=== PATIENT | male | born 1930 | race Caucasian/White ===

== ENCOUNTER 2017-02-07 10:04 | Emergency (ER) | payer MEDICARE, BC ==
[2017-02-07 10:51] VITALS: BP 137/81
--- NOTE | 2017-02-07 10:51 | EDM.PDOC ---
ED HPI GENERAL MEDICAL PROBLEM - General Chief Complaint: Neuro Symptoms/Deficits Stated Complaint: STROKE? Time Seen by Provider: 02/07/17 10:15 Source of Information: Reports: Patient, EMS History Limitations: Reports: No Limitations - History of Present Illness INITIAL COMMENTS - FREE TEXT/NARRATIVE: 78-year-old male with a history of 6 months of recurring TIA-like symptoms is having another episode. 2 weeks ago he had a persistent symptom of dysarthria which was evaluated thoroughly at [facility]. He has a known partial obstruction of the carotid artery which he is scheduled to be repaired, he has a consultation regarding this tomorrow. He has had dysarthria for 2 hours, but is improving rapidly. No other symptoms. Onset: Unknown/Unsure Severity: Mild Associated Symptoms: Reports: No Other Symptoms - Related Data Allergies Allergy/AdvReac Type Severity Reaction Status Date / Time aspirin Allergy Nausea Verified 02/07/17 10:19 Home Meds: Home Meds Aspirin 325 mg PO DAILY 02/07/17 [History] Famotidine [Pepcid] 20 mg PO BID 02/07/17 [History] atorvaSTATin [Lipitor] 40 mg PO BEDTIME 02/07/17 [History] Past Medical History - Past Health History Medical/Surgical History: Denies Medical/Surgical History HEENT History: Reports: Macular Degeneration Gastrointestinal History: Reports: GERD Musculoskeletal History: Reports: Fracture, Gout Neurological History: Reports: CVA Endocrine/Metabolic History: Reports: Other (See Below) Other Endocrine/Metabolic History: borderline diabetes Dermatologic History: Reports: Eczema - Infectious Disease History Infectious Disease History: Reports: Chicken Pox, Measles, MRSA Social & Family History - Tobacco Use Smoking Status *Q: Unknown Ever Smoked Second Hand Smoke Exposure: No - Caffeine Use Caffeine Use: Reports: Coffee - Alcohol Use Days Per Week of Alcohol Use: 1 Number of Drinks Per Day: 1 Total Drinks Per Week: 1 - Recreational Drug Use Recreational Drug Use: No ED ROS GENERAL - Review of Systems Review Of Systems: See Below Constitutional: Denies: Fever, Chills Respiratory: Reports: No Symptoms Cardiovascular: Reports: No Symptoms Musculoskeletal: Reports: No Symptoms Skin: Reports: No Symptoms Neurological: Denies: Headache ED EXAM, NEURO - Physical Exam Exam: See Below Exam Limited By: No Limitations General Appearance: Alert, No Apparent Distress Eye Exam: Bilateral Eye: EOMI Respiratory/Chest: No Respiratory Distress, Lungs Clear Cardiovascular: Regular Rate, Rhythm Neurological: Alert, Normal Mood/Affect, Other (Only neurologic deficit found was dysarthria, no facial muscle weakness or peripheral symptoms or findings.) Psychiatric: Normal Affect, Normal Mood Skin Exam: Warm, Dry EKG INTERPRETATION Rhythm: NSR QRS: RBBB Course - Vital Signs Last Recorded V/S: Last Vital Signs Temp 98.6 F 02/07/17 10:48 Pulse 60 02/07/17 10:11 Resp 15 02/07/17 10:48 BP 137/81 02/07/17 10:48 Pulse Ox 96 02/07/17 10:48 - Re-Assessments/Exams Free Text/Narrative Re-Assessment/Exam: 02/07/17 10:49 Patient was given his normal dose of a full aspirin and famotidine, patient took his own medicine. I discussed his condition with Dr. Morse, neurologist labor relations specialist who knows this patient well. Because his symptoms are rapidly improving and almost resolved, he recommended no further treatment or evaluation but to transfer to [place]. I discussed this with the patient and his daughter, I recommended ambulance transfer but he refused and insisted on going by private car understanding the risks. Departure - Departure Time of Disposition: 11:14 Disposition: DC/Tfer to Other 70 Condition: Fair Clinical Impression: Dysarthria Carotid artery disease Qualifiers: Laterality: left Qualified Code(s): I77.9 - Disorder of arteries and arterioles , unspecified TIA (transient ischemic attack) Qualifiers: Transient cerebral ischemia type: carotid artery syndrome (hemispheric) Qualified Code(s): G45.1 - Carotid artery syndrome (hemispheric) - Discharge Information Instructions: Carotid Artery Disease, Transient Ischemic Attack, [id number], Hypophosphatemia Referrals: PCP,None [Primary Care Provider] - Forms: ED Department Discharge Care Plan Goals: Patient will be transported to [facility] in [place] for admission, Dr. Morse accepted the patient.
== END 2017-02-07 11:17 | disposition other institution (70) ==
LOC: JP.ED 10:04
DX: G45.1 Carotid artery syndrome (hemispheric) (principal); I77.9 Disorder of arteries and arterioles, unspecified; K21.9 Gastro-esophageal reflux disease without esophagitis; Z79.82 Long term (current) use of aspirin; Z88.6 Allergy status to analgesic agent
CPT/HCPCS: 99285

== ENCOUNTER 2017-06-13 14:07 | Inpatient (IN) | payer MEDICARE, BC ==
--- NOTE | 2017-06-13 14:29 | EDM.PDOC ---
ED HPI GENERAL MEDICAL PROBLEM - General Chief Complaint: Lower Extremity Injury/Pain Stated Complaint: FELL AT HOME Time Seen by Provider: 06/13/17 14:20 Source of Information: Reports: Patient, Family History Limitations: Reports: No Limitations - History of Present Illness INITIAL COMMENTS - FREE TEXT/NARRATIVE: 87-year-old male stumbled at home falling onto his right hip area. He is having significant pain in the right groin and a small amount of lateral right hip pain. He is able to move the hip fairly freely but has significant pain with weightbearing. Onset: Sudden Duration: Hour(s): (Within the past 2 hours) Location: Reports: Pelvis, Lower Extremity, Right Quality: Reports: Sharp, Stabbing Severity: Moderate Worsens with: Reports: Other (Some increased pain with movement but marked increased pain with weightbearing) Right Hip Pain Score (Numeric/FACES): 8 - Related Data Allergies Allergy/AdvReac Type Severity Reaction Status Date / Time aspirin Allergy Nausea Verified 06/13/17 14:26 Home Meds: Home Meds Aspirin 325 mg PO DAILY 02/07/17 [History] Famotidine [Pepcid] 20 mg PO BID 02/07/17 [History] atorvaSTATin [Lipitor] 40 mg PO BEDTIME 02/07/17 [History] Lutein/Minerals/Vit A,C & E [Ocuvite] 1 tab PO DAILY 06/13/17 [History] Past Medical History - Past Health History Medical/Surgical History: Denies Medical/Surgical History HEENT History: Reports: Macular Degeneration Gastrointestinal History: Reports: GERD Musculoskeletal History: Reports: Fracture, Gout Neurological History: Reports: CVA Endocrine/Metabolic History: Reports: Other (See Below) Other Endocrine/Metabolic History: borderline diabetes Dermatologic History: Reports: Eczema - Infectious Disease History Infectious Disease History: Reports: Chicken Pox, Measles, MRSA Social & Family History - Tobacco Use Smoking Status *Q: Unknown Ever Smoked Second Hand Smoke Exposure: No - Caffeine Use Caffeine Use: Reports: Coffee - Alcohol Use Days Per Week of Alcohol Use: 1 Number of Drinks Per Day: 1 Total Drinks Per Week: 1 - Recreational Drug Use Recreational Drug Use: No Review of Systems - Review of Systems Review Of Systems: See Below Constitutional: Denies: Fever Respiratory: Denies: Shortness of Breath Cardiovascular: Denies: Chest Pain GI/Abdominal: Denies: Abdominal Pain Skin: Denies: Bruising Neurological: Reports: No Symptoms Psychiatric: Reports: No Symptoms ED EXAM, GENERAL - Physical Exam Exam: See Below Exam Limited By: No Limitations General Appearance: Alert, No Apparent Distress (Quite comfortable when lying supine and not moving) Head: Atraumatic Neck: Non-Tender Respiratory/Chest: No Respiratory Distress GI/Abdominal: Soft, Non-Tender Extremities: Other (Passive range of motion of the right leg and hip is generally unremarkable, he is able to lift the leg up against gravity. He has palpation tenderness in the right groin. There is no asymmetry, deformity of the right leg or rotation) Neurological: Alert, Oriented Skin Exam: Warm, Dry Course - Vital Signs Last Recorded V/S: Last Vital Signs Temp 100.0 F 06/13/17 16:40 Pulse 81 06/13/17 16:40 Resp 16 06/13/17 16:40 BP 157/75 H 06/13/17 16:40 Pulse Ox 92 L 06/13/17 16:40 - Orders/Labs/Meds Orders: Active Orders 24 hr Category Date Time Status Pelvis 1V or 2V [CR] Stat Exams 06/13/17 14:36 Taken Pelvis wo Cont [CT] Stat Exams 06/13/17 15:46 Taken Medication Orders Acetaminophen (Tylenol) 650 mg PO Q4H PRN PRN Reason: Pain (Mild 1-3)/fever Dextrose (Glutose 15) 15 gm PO ASDIRECTED PRN PRN Reason: Hypoglycemia Dextrose/Water (Dextrose 50% In Water) 50 ml IV ASDIRECTED PRN PRN Reason: Hypoglycemia Docusate Sodium (Colace) 100 mg PO BID [facility] Enoxaparin Sodium (Lovenox) 40 mg SUBCUT Q24H [facility] Famotidine (Pepcid) 20 mg PO BID [facility] Hydromorphone HCl (Dilaudid) 0.25 mg IVPUSH Q2H PRN PRN Reason: Pain Sodium Chloride (Normal Saline) 1,000 mls @ 100 mls/hr IV ASDIRECTED [facility] Insulin Aspart (Novolog) 0 unit SUBCUT QIDACANDBED [facility] PRN Reason: Protocol Magnesium Hydroxide (Milk Of Magnesia) 30 ml PO Q12H PRN PRN Reason: Constipation Multivitamins/Minerals (Prosight) 1 tab PO DAILY [facility] Ondansetron HCl (Zofran) 4 mg IV Q4H PRN PRN Reason: Nausea/Vomiting Oxycodone HCl (Oxycodone) 5 mg PO Q4H PRN PRN Reason: Pain (moderate 4-6) Last Admin: 06/13/17 16:55 Dose: 5 mg Polyethylene Glycol (Miralax) 17 gm PO DAILY PRN PRN Reason: Constipation Sodium Chloride (Saline Flush) 10 ml FLUSH ASDIRECTED PRN PRN Reason: Keep Vein Open Meds: Medications Generic Name Dose Route Start Last Admin Trade Name Freq PRN Reason Stop Dose Admin Acetaminophen 650 mg 06/13/17 16:35 Tylenol PO Q4H PRN Pain (Mild 1-3)/fever Dextrose 15 gm 06/13/17 16:35 Glutose 15 PO ASDIRECTED PRN Hypoglycemia Dextrose/Water 50 ml 06/13/17 16:35 Dextrose 50% In Water IV ASDIRECTED PRN Hypoglycemia Docusate Sodium 100 mg 06/13/17 17:00 Colace PO BID [facility] Enoxaparin Sodium 40 mg 06/13/17 17:30 Lovenox SUBCUT Q24H [facility] Famotidine 20 mg 06/13/17 21:00 Pepcid PO BID [facility] Hydromorphone HCl 0.25 mg 06/13/17 16:35 Dilaudid IVPUSH Q2H PRN Pain Sodium Chloride 1,000 mls @ 100 mls/hr 06/13/17 16:35 Normal Saline IV ASDIRECTED [facility] Insulin Aspart 0 unit 06/13/17 17:00 Novolog SUBCUT QIDACANDBED [facility] Protocol Magnesium Hydroxide 30 ml 06/13/17 16:35 Milk Of Magnesia PO Q12H PRN Constipation Multivitamins/Minerals 1 tab 06/14/17 09:00 Prosight PO DAILY [facility] Ondansetron HCl 4 mg 06/13/17 16:35 Zofran IV Q4H PRN Nausea/Vomiting Oxycodone HCl 5 mg 06/13/17 16:35 06/13/17 16:55 Oxycodone PO 5 mg Q4H PRN Administration Pain (moderate 4-6) Polyethylene Glycol 17 gm 06/13/17 16:35 Miralax PO DAILY PRN Constipation Sodium Chloride 10 ml 06/13/17 16:35 Saline Flush FLUSH ASDIRECTED PRN Keep Vein Open - Re-Assessments/Exams Free Text/Narrative Re-Assessment/Exam: 06/13/17 14:28 An AP pelvis x-ray was obtained. 06/13/17 15:09 AP x-ray revealed a right ramus fracture. Because of the significant pain with weightbearing, the fact the patient lives alone and the concern for him not being able to self-care I asked Dr. Almaraz to see the patient to consider admission for pain control and physical therapy evaluation. He may also need a orthopedic consultation or further assessment with a CT of the pelvis. Departure - Departure Time of Disposition: 16:20 Disposition: Admitted As Inpatient 64 Condition: Fair Clinical Impression: Fracture of pelvis - Discharge Information - My Orders Last 24 Hours: My Active Orders 06/13/17 14:36 Pelvis 1V or 2V [CR] Stat - Assessment/Plan Last 24 Hours: My Active Orders 06/13/17 14:36 Pelvis 1V or 2V [CR] Stat
--- NOTE | 2017-06-13 16:06 | PCM.HP ---
H&P History of Present Illness - General Date of Service: 06/13/17 Admit Problem/Dx: Admission Diagnosis/Problem Admission Diagnosis/Problem Fracture of pubic ramus Source of Information: Patient, Family, Provider, RN Notes Reviewed History Limitations: Reports: No Limitations - History of Present Illness Initial Comments - Free Text/Narative: Mr. Santos is an 87-year-old gentleman who is admitted through the emergency department after he fell at home experiencing significant right groin pain. He was evaluated in the emergency department, x-ray of the pelvis shows evidence of a pubic rami fracture. He is otherwise fairly healthy with no significant history of cardiac or pulmonary disease. Right Hip Pain Score (Numeric/FACES): 8 - Related Data Allergies/Adverse Reactions: Allergies Allergy/AdvReac Type Severity Reaction Status Date / Time aspirin Allergy Nausea Verified 06/13/17 14:26 Home Medications: Home Meds Aspirin 325 mg PO DAILY 02/07/17 [History] Famotidine [Pepcid] 20 mg PO BID 02/07/17 [History] atorvaSTATin [Lipitor] 40 mg PO BEDTIME 02/07/17 [History] Lutein/Minerals/Vit A,C & E [Ocuvite] 1 tab PO DAILY 06/13/17 [History] Past Medical History - Past Health History Medical/Surgical History: Denies Medical/Surgical History HEENT History: Reports: Macular Degeneration Cardiovascular History: Reports: High Cholesterol Gastrointestinal History: Reports: GERD Musculoskeletal History: Reports: Fracture, Gout Neurological History: Reports: CVA Endocrine/Metabolic History: Reports: Other (See Below) Other Endocrine/Metabolic History: borderline diabetes Dermatologic History: Reports: Eczema - Infectious Disease History Infectious Disease History: Reports: Chicken Pox, Measles, MRSA - Past Surgical History Cardiovascular Surgical History: Reports: Carotid Endarterectomy Social & Family History - Tobacco Use Smoking Status *Q: Unknown Ever Smoked Years of Tobacco use: 30 Packs/Tins Daily: 0.5 Used Tobacco, but Quit: Yes Month Tobacco Last Used: December Second Hand Smoke Exposure: No - Caffeine Use Caffeine Use: Reports: Coffee - Alcohol Use Days Per Week of Alcohol Use: 1 Number of Drinks Per Day: 1 Total Drinks Per Week: 1 - Recreational Drug Use Recreational Drug Use: No H&P Review of Systems - Review of Systems: Review Of Systems: See Below General: Denies: Fever, Chills, Weakness, Decreased Appetite, Weight Loss HEENT: Reports: No Symptoms Pulmonary: Reports: No Symptoms Cardiovascular: Reports: No Symptoms Gastrointestinal: Reports: No Symptoms Genitourinary: Reports: No Symptoms Musculoskeletal: Reports: Other (Right groin pain) Skin: Reports: No Symptoms Psychiatric: Reports: No Symptoms Neurological: Reports: No Symptoms Hematologic/Lymphatic: Reports: No Symptoms Immunologic: Reports: No Symptoms Exam - Exam Exam: See Below - Vital Signs Vital Signs: Last Vital Signs Temp 96.4 F 06/13/17 14:34 Pulse 77 06/13/17 14:34 Resp 16 06/13/17 14:34 BP 185/83 H 06/13/17 14:34 Pulse Ox 94 L 06/13/17 14:34 Weight: 180 lb - Exam Quality Assessment: DVT Prophylaxis General: Alert, Oriented, Cooperative, Moderate Distress HEENT: Conjunctiva Clear, Mucosa Moist & [place], Normal Nasal Septum, Posterior Pharynx Clear, Pupils Equal. No: Hearing Intact Neck: Supple, Trachea Midline, +2 Carotid Pulse wo Bruit Lungs: Clear to Auscultation, Normal Respiratory Effort Cardiovascular: Regular Rate, Regular Rhythm, Normal S1, Normal S2. No: Systolic Murmur, Diastolic Murmur GI/Abdominal Exam: Soft, Non-Tender, No Organomegaly, No Distention Extremities: Non-Tender, No Pedal Edema, Other (Right groin pain with movement) Skin: Warm, Dry, Intact Neurological: Cranial Nerves Intact, Strength Equal Bilateral, Normal Speech, Normal Tone, Sensation Intact. No: Focal Deficit Neuro Extensive - Mental Status: Alert, Oriented x3, Normal Mood/Affect, Normal Cognition, Memory Intact *Q Meaningful Use (ADM) - VTE *Q VTE Criteria *Q: - VTE Risk Assess *Q Each Risk Factor Represents 1 Point: Obesity ( BMI > 25 kg/m2) Total Score 1 Point Risk Factors: 1 Each Risk Factor Represents 2 Points: None Total Score 2 Point Risk Factors: 0 Each Risk Factor Represents 3 Points: Age 75 Years or Greater Total Score 3 Point Risk Factors: 3 Each Risk Factor Represents 5 Points: Hip, Pelvis or Leg Fracture, Less than 1 month Total Score 5 Point Risk Factors: 5 Venous Thromboembolism Risk Factor Score *Q: 9 - Stroke *Q Stroke Criteria *Q: - AMI *Q AMI Criteria *Q: Problem List Initiated/Reviewed/Updated: Yes Orders Last 24hrs: Active Orders 24 hr Category Date Time Status Patient Status Manage Transfer [TRANSFER] Routine ADT 06/13/17 15:47 Ordered Hip wo Cont Rt [CT] Stat Exams 06/13/17 15:46 Ordered Pelvis 1V or 2V [CR] Stat Exams 06/13/17 14:36 Taken Pelvis wo Cont [CT] Stat Exams 06/13/17 15:46 Ordered CBC WITH AUTO DIFF [HEME] Stat Lab 06/13/17 15:46 Ordered COMPREHENSIVE METABOLIC PN,CMP [CHEM] Stat Lab 06/13/17 15:46 Ordered UA W/MICROSCOPIC [URIN] Stat Lab 06/13/17 15:46 Uncollected Resuscitation Status Routine Resus Stat 06/13/17 15:49 Ordered Assessment/Plan Comment:: ASSESSMENT AND PLAN PUBIC RAMI FRACTURE-experienced from from a fall earlier today. -CT scan of right hip and pelvis to further define and rule out other fractures -IV fluids for hydration -Pain medication as needed -Consult Dr. Frank Perez for orthopedic opinion -Physical therapy and occupational therapy consults in a.m. 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 At the time of this admission I do not reasonably expected evaluation and management of this problem will require more than a 96 hour hospital stay. DISPOSITION-anticipate discharge to home after the hospital stay. PRIMARY CARE PROVIDER-Dr. Ng
[2017-06-13] MEDS ORDERED: Sodium Chloride 0.9% 10 ML Syringe FLUSH PRN (16:35)
[2017-06-13] MEDS ORDERED: Polyethylene Glycol 3350 Powder 17 GM Packet PO PRN (16:35)
[2017-06-13] MEDS ORDERED: Magnesium Hydroxide 400 MG/5 ML Susp 30 ML Cup PO PRN (16:35)
[2017-06-13] MEDS ORDERED: 50% Dextrose in Water 50 ML Syringe IV PRN (16:35)
[2017-06-13] MEDS ORDERED: HYDROmorphone 0.5 MG/0.5 ML Syringe IVPUSH PRN (16:35)
[2017-06-13] MEDS ORDERED: Glucose Gel 15 GM in 37.5 GM Tube PO PRN (16:35)
[2017-06-13] MEDS ORDERED: Ondansetron 4 MG/2 ML SDV IV PRN (16:35)
[2017-06-13] MEDS: oxyCODONE 5 MG Tab PO PRN ×2 (16:55→22:58)
[2017-06-13] MEDS: Insulin Aspart 100 Units/ML 3 ML Pen SUBCUT SCH ×2 (18:17→21:06)
[2017-06-13] MEDS: Enoxaparin 40 MG/0.4 ML Syringe SUBCUT SCH (18:17)
[2017-06-13] MEDS: Docusate Sodium 100 MG Cap PO SCH ×2 (18:18→21:09)
[2017-06-13] MEDS: Famotidine 20 MG Tab PO SCH (21:10)
[2017-06-14] MEDS: Sodium Chloride 0.9% 1,000 ML IV SCH ×2 (02:39→12:16)
[2017-06-14] MEDS: Insulin Aspart 100 Units/ML 3 ML Pen SUBCUT SCH ×4 (07:57→21:39)
[2017-06-14] MEDS: oxyCODONE 5 MG Tab PO PRN ×3 (07:58→16:16)
[2017-06-14] MEDS: Famotidine 20 MG Tab PO SCH ×2 (08:01→20:16)
[2017-06-14] MEDS: Docusate Sodium 100 MG Cap PO SCH ×2 (08:01→20:18)
[2017-06-14] MEDS: Beta-Carotene (Vitamin A) w/Vitamin C & E plus Minerals Tab PO SCH (08:01)
--- NOTE | 2017-06-14 08:56 | CR ---
There is a fracture of the right superior and inferior pubic ramus. Moderate degenerative changes bot h hips. Remainder intact.
[2017-06-14] MEDS ORDERED: Non-Formulary Medication 1 Each (Lutein/Minerals/Vit A,C & E [Ocuvite] 1 TAB) PO SCH (09:00)
--- NOTE | 2017-06-14 11:11 | PCM.CONS ---
H&P History of Present Illness - General Admit Problem/Dx: Admission Diagnosis/Problem Admission Diagnosis/Problem Fracture of pubic ramus - History of Present Illness Onset of Symptoms: Reports: Sudden Duration of Symptoms: Reports: Day(s): Location: Reports: Lower Extremity, Right Quality: Reports: Pressure, Sharp, Stabbing, Throbbing Severity: Moderate Improves with: Reports: Rest Worsens with: Reports: Movement Associated Symptoms: Reports: No Other Symptoms Right Hip Pain Score (Numeric/FACES): 3 - Related Data Allergies/Adverse Reactions: Allergies Allergy/AdvReac Type Severity Reaction Status Date / Time aspirin Allergy Nausea Verified 06/13/17 14:26 Home Medications: Home Meds Aspirin 325 mg PO DAILY 02/07/17 [History] Famotidine [Pepcid] 20 mg PO BID 02/07/17 [History] atorvaSTATin [Lipitor] 40 mg PO BEDTIME 02/07/17 [History] Lutein/Minerals/Vit A,C & E [Ocuvite] 1 tab PO DAILY 06/13/17 [History] Past Medical History - Past Health History Medical/Surgical History: Denies Medical/Surgical History HEENT History: Reports: Macular Degeneration Cardiovascular History: Reports: High Cholesterol Gastrointestinal History: Reports: GERD Musculoskeletal History: Reports: Fracture, Gout Neurological History: Reports: CVA Endocrine/Metabolic History: Reports: Other (See Below) Other Endocrine/Metabolic History: borderline diabetes Dermatologic History: Reports: Eczema - Infectious Disease History Infectious Disease History: Reports: Chicken Pox, Measles, MRSA - Past Surgical History Cardiovascular Surgical History: Reports: Carotid Endarterectomy Social & Family History - Tobacco Use Smoking Status *Q: Unknown Ever Smoked Years of Tobacco use: 30 Packs/Tins Daily: 0.5 Used Tobacco, but Quit: Yes Month Tobacco Last Used: December Second Hand Smoke Exposure: No - Caffeine Use Caffeine Use: Reports: Coffee - Alcohol Use Days Per Week of Alcohol Use: 1 Number of Drinks Per Day: 1 Total Drinks Per Week: 1 - Recreational Drug Use Recreational Drug Use: No H&P Review of Systems - Review of Systems: Review Of Systems: See Below General: Reports: No Symptoms HEENT: Reports: No Symptoms Pulmonary: Reports: No Symptoms Cardiovascular: Reports: No Symptoms Gastrointestinal: Reports: No Symptoms Genitourinary: Reports: No Symptoms Musculoskeletal: Reports: Back Pain, Leg Pain, Joint Pain, Muscle Pain, Muscle Stiffness Skin: Reports: No Symptoms Psychiatric: Reports: No Symptoms Neurological: Reports: No Symptoms Hematologic/Lymphatic: Reports: No Symptoms Immunologic: Reports: No Symptoms Exam - Exam Exam: See Below - Vital Signs Vital Signs: Last Vital Signs Temp 99.0 F 06/14/17 07:11 Pulse 67 06/14/17 07:11 Resp 16 06/14/17 07:11 BP 132/67 06/14/17 07:11 Pulse Ox 92 L 06/14/17 07:11 Weight: 180 lb - Exam General: Alert, Oriented HEENT: PERRLA, Conjunctiva Clear, EACs Clear, EOMI, Hearing Intact, Mucosa Moist & [place] Neck: Supple, Trachea Midline Lungs: Normal Respiratory Effort Back Exam: Decreased Range of Motion Extremities: Limited Range of Motion Peripheral Pulses: 2+: Dorsalis Pedis (L), Dorsalis Pedis (R) Skin: Warm, Dry, Intact Neuro Extensive - Mental Status: Alert, Oriented x3, Normal Mood/Affect, Normal Cognition, Memory Intact Psychiatric: Alert, Normal Affect, Normal Mood - Patient Data Lab Results Last 24 hrs: Laboratory Results - last 24 hr 06/13/17 06/13/17 06/13/17 Range/Units 15:57 15:57 17:16 WBC 11.8 H (4.5-11.0) K/uL RBC 4.54 (4.30-5.90) M/uL Hgb 14.4 (12.0-15.0) g/dL Hct 42.5 (40.0-54.0) % MCV 94 (80-98) fL MCH 32 H (27-31) pg MCHC 34 (32-36) % Plt Count 182 (150-400) K/uL Neut % (Auto) 84 H (36-66) % Lymph % (Auto) 8 L (24-44) % [place] % (Auto) 7 H (2-6) % Eos % (Auto) 0 L (2-4) % Baso % (Auto) 0 (0-1) % Sodium 138 L (140-148) mmol/L Potassium 4.2 (3.6-5.2) mmol/L Chloride 102 (100-108) mmol/L Carbon Dioxide 27 (21-32) mmol/L Anion Gap 13.2 (5.0-14.0) mmol/L BUN 24 H (7-18) mg/dL Creatinine 1.4 H (0.8-1.3) mg/dL Est Cr Clr Drug Dosing 34.61 mL/min Estimated GFR (MDRD) 48 L (>60) Glucose 194 H (74-106) mg/dL Calcium 9.3 (8.5-10.1) mg/dL Total Bilirubin 0.5 (0.2-1.0) mg/dL AST 24 (15-37) U/L ALT 31 (12-78) U/L Alkaline Phosphatase 125 H (46-116) U/L Total Protein 6.9 (6.4-8.2) g/dL Albumin 3.2 L (3.4-5.0) g/dL Globulin 3.7 H (2.3-3.5) g/dL Albumin/Globulin Ratio 0.9 L (1.2-2.2) Urine Color Yellow Urine Appearance Clear Urine pH 6.0 (4.5-8.0) Ur Specific [place] 1.015 (1.008-1.030) Urine Protein Negative (NEGATIVE) mg/dL Urine Glucose (UA) 250 H (NEGATIVE) mg/dL Urine Ketones 15 H (NEGATIVE) mg/dL Urine Occult Blood Negative (NEGATIVE) Urine Nitrite Negative (NEGAITVE) Urine Bilirubin Negative (NEGATIVE) Urine Urobilinogen Normal (NORMAL) mg/dL Ur Leukocyte Esterase Negative (NEGATIVE) Urine RBC Not seen (0-5) Urine WBC 0-5 (0-5) Ur Epithelial Cells Not seen Amorphous Sediment Not seen Urine Bacteria Not seen Urine Mucus Not seen 06/14/17 06/14/17 Range/Units 05:00 05:00 WBC 8.3 (4.5-11.0) K/uL RBC 3.85 L (4.30-5.90) M/uL Hgb 12.0 D (12.0-15.0) g/dL Hct 36.4 L (40.0-54.0) % MCV 95 (80-98) fL MCH 31 (27-31) pg MCHC 33 (32-36) % Plt Count 160 (150-400) K/uL Neut % (Auto) (36-66) % Lymph % (Auto) (24-44) % [place] % (Auto) (2-6) % Eos % (Auto) (2-4) % Baso % (Auto) (0-1) % Sodium 138 L (140-148) mmol/L Potassium 3.9 (3.6-5.2) mmol/L Chloride 105 (100-108) mmol/L Carbon Dioxide 28 (21-32) mmol/L Anion Gap 8.9 (5.0-14.0) mmol/L BUN 20 H (7-18) mg/dL Creatinine 1.3 (0.8-1.3) mg/dL Est Cr Clr Drug Dosing 37.27 mL/min Estimated GFR (MDRD) 52 L (>60) Glucose 130 H (74-106) mg/dL Calcium 8.4 L (8.5-10.1) mg/dL Total Bilirubin (0.2-1.0) mg/dL AST (15-37) U/L ALT (12-78) U/L Alkaline Phosphatase (46-116) U/L Total Protein (6.4-8.2) g/dL Albumin (3.4-5.0) g/dL Globulin (2.3-3.5) g/dL Albumin/Globulin Ratio (1.2-2.2) Urine Color Urine Appearance Urine pH (4.5-8.0) Ur Specific [place] (1.008-1.030) Urine Protein (NEGATIVE) mg/dL Urine Glucose (UA) (NEGATIVE) mg/dL Urine Ketones (NEGATIVE) mg/dL Urine Occult Blood (NEGATIVE) Urine Nitrite (NEGAITVE) Urine Bilirubin (NEGATIVE) Urine Urobilinogen (NORMAL) mg/dL Ur Leukocyte Esterase (NEGATIVE) Urine RBC (0-5) Urine WBC (0-5) Ur Epithelial Cells Amorphous Sediment Urine Bacteria Urine Mucus Result Diagrams: 06/14/17 05:00 06/14/17 05:00 Consult PN Assessment/Plan Procedures: Procedures ASSAY OF CK (CPK) (06/20/13) ASSAY OF TROPONIN QUANT (06/20/13) C-REACTIVE PROTEIN (05/19/16) CANALITH REPOSITIONING PROC (10/22/13) CHEST X-RAY 2VW FRONTAL&LATL (06/20/13) COMPLETE CBC W/AUTO DIFF WBC (05/19/16) COMPREHEN METABOLIC PANEL (05/19/16) CT HEAD/BRAIN W/O DYE (05/19/16) ELECTROCARDIOGRAM TRACING (06/20/13) EMERGENCY DEPT VISIT (02/07/17) EMERGENCY DEPT VISIT (05/19/16) EMERGENCY DEPT VISIT (06/20/13) EXTRACRANIAL BILAT STUDY (10/17/13) MR ANGIOGRAPHY HEAD W/O DYE (06/07/16) OT EVALUATION (10/22/13) ROUTINE VENIPUNCTURE (05/19/16) (1) Bilateral pubic rami fractures SNOMED Code(s): 117559749 Code(s): S32.591A - OTH FRACTURE OF RIGHT PUBIS, INIT ENCNTR FOR CLOSED FRACTURE; S32.592A - OTH FRACTURE OF LEFT PUBIS, INIT ENCNTR FOR CLOSED FRACTURE Current Visit: Yes (2) Sacral insufficiency fracture SNOMED Code(s): 182227145 Code(s): M84.48XA - PATHOLOGICAL FRACTURE, OTHER SITE, INIT ENCNTR FOR FRACTURE Current Visit: Yes Qualifiers: Encounter type: initial encounter Qualified Code(s): M84.48XA - Pathological fracture, other site, initial encounter for fracture Problem List Initiated/Reviewed/Updated: Yes Plan: I had the pleasure visiting with the patient and his hospital room this morning at the request of Dr. Almaraz. The patient is a pleasant 87-year-old male who is very active and fell at his home yesterday. He was seen at the emergency department where he was evaluated. There is a suspicion of possible rami fracture. I requested a CT. He was found to have several pelvic fractures. He denies any history of trauma to his pelvis. He tries to go dancing about 3 times a week. He is very active in the community. He lives at home. [place]. His daughter is a nurse. LOWER EXTREMITY Musculoskeletal Physical Examination Constitutional: Vital signs including height and weight were reviewed and documented on the patient's chart. General appearance demonstrates normal development and body habitus. HEENT: Normocephalic, atraumatic. Neurological: The patient is alert and oriented to person, place, and time. Mood and affect are appropriate. Patient has not been ambulatory. Intact sensation is noted. Coordination and balance are normal. Right lower extremity: Inspection/palpation: Normal symmetry and appearance without tenderness. Range of motion: Not tested secondary to recent fractures. Stability: Stable through range of motion. Strength: Normal muscle strength and tone. Skin: Normal skin tone without rashes or lesions. Patient has right groin pain. Left lower extremity: Inspection/palpation: Normal symmetry and appearance without tenderness. Range of motion: Not tested secondary to recent fractures. Stability: Stable through range of motion. Strength: Normal muscle strength and tone. Skin: Normal skin tone without rashes or lesions. Imaging: CT of the pelvis is reviewed incorporated into the decision-making process. I did discuss the CT with the radiologist on duty. The patient has bilateral superior pelvic rami fractures. On the right side this does go into the acetabulum at about 10:00. He does have an right inferior pubic rami fractures well. There is a vertical sacral insufficiency fracture on the right. This is nondisplaced. There is a cortical abnormality at the superior and inferior aspect of the sacrum. Plan: The patient may be weightbearing as tolerated with the aid of a walker. I' ve explained to him that this may take some time to feel better. I have advised him to drink lots of fluids to avoid any constipation secondary to opiate treatment. I did discuss the may need to be in an extended care facility for 1- 2 weeks. I will see the patient on an as-needed basis.
--- NOTE | 2017-06-14 14:16 | PCM.PN ---
- General Info Date of Service: 06/14/17 Subjective Update: Mr. Santos has been fairly stable since admission last night, he did experience a transient episode of hypotension that responded to a fluid bolus. Hemoglobin has dropped following hydration and likely related to some underlying bleeding, but is still within stable range. Pain control thus far has been adequate. He's been seen and evaluated by Dr. Frank Perez, current plan is for weightbearing as tolerated and probable discharge to long-term. - Review of Systems General: Denies: Fever, Chills Pulmonary: Reports: No Symptoms Cardiovascular: Reports: No Symptoms Gastrointestinal: Reports: No Symptoms Musculoskeletal: Reports: Other (Pelvic pain) - Patient Data Vitals - Most Recent: Last Vital Signs Temp 98.1 F 06/14/17 11:12 Pulse 62 06/14/17 11:12 Resp 18 06/14/17 11:12 BP 127/54 L 06/14/17 11:12 Pulse Ox 94 L 06/14/17 11:12 Weight - Most Recent: 180 lb 0.013 oz I&O - Last 24 Hours: Intake & Output 06/13/17 06/14/17 06/14/17 22:59 06:59 14:59 Intake Total 1658 1616 Output Total 400 250 200 Balance -400 1408 1416 Lab Results Last 24 Hours: Laboratory Results - last 24 hr 06/13/17 06/13/17 06/13/17 Range/Units 15:57 15:57 17:16 WBC 11.8 H (4.5-11.0) K/uL RBC 4.54 (4.30-5.90) M/uL Hgb 14.4 (12.0-15.0) g/dL Hct 42.5 (40.0-54.0) % MCV 94 (80-98) fL MCH 32 H (27-31) pg MCHC 34 (32-36) % Plt Count 182 (150-400) K/uL Neut % (Auto) 84 H (36-66) % Lymph % (Auto) 8 L (24-44) % [place] % (Auto) 7 H (2-6) % Eos % (Auto) 0 L (2-4) % Baso % (Auto) 0 (0-1) % Sodium 138 L (140-148) mmol/L Potassium 4.2 (3.6-5.2) mmol/L Chloride 102 (100-108) mmol/L Carbon Dioxide 27 (21-32) mmol/L Anion Gap 13.2 (5.0-14.0) mmol/L BUN 24 H (7-18) mg/dL Creatinine 1.4 H (0.8-1.3) mg/dL Est Cr Clr Drug Dosing 34.61 mL/min Estimated GFR (MDRD) 48 L (>60) Glucose 194 H (74-106) mg/dL Calcium 9.3 (8.5-10.1) mg/dL Total Bilirubin 0.5 (0.2-1.0) mg/dL AST 24 (15-37) U/L ALT 31 (12-78) U/L Alkaline Phosphatase 125 H (46-116) U/L Total Protein 6.9 (6.4-8.2) g/dL Albumin 3.2 L (3.4-5.0) g/dL Globulin 3.7 H (2.3-3.5) g/dL Albumin/Globulin Ratio 0.9 L (1.2-2.2) Urine Color Yellow Urine Appearance Clear Urine pH 6.0 (4.5-8.0) Ur Specific [place] 1.015 (1.008-1.030) Urine Protein Negative (NEGATIVE) mg/dL Urine Glucose (UA) 250 H (NEGATIVE) mg/dL Urine Ketones 15 H (NEGATIVE) mg/dL Urine Occult Blood Negative (NEGATIVE) Urine Nitrite Negative (NEGAITVE) Urine Bilirubin Negative (NEGATIVE) Urine Urobilinogen Normal (NORMAL) mg/dL Ur Leukocyte Esterase Negative (NEGATIVE) Urine RBC Not seen (0-5) Urine WBC 0-5 (0-5) Ur Epithelial Cells Not seen Amorphous Sediment Not seen Urine Bacteria Not seen Urine Mucus Not seen 06/14/17 06/14/17 Range/Units 05:00 05:00 WBC 8.3 (4.5-11.0) K/uL RBC 3.85 L (4.30-5.90) M/uL Hgb 12.0 D (12.0-15.0) g/dL Hct 36.4 L (40.0-54.0) % MCV 95 (80-98) fL MCH 31 (27-31) pg MCHC 33 (32-36) % Plt Count 160 (150-400) K/uL Neut % (Auto) (36-66) % Lymph % (Auto) (24-44) % [place] % (Auto) (2-6) % Eos % (Auto) (2-4) % Baso % (Auto) (0-1) % Sodium 138 L (140-148) mmol/L Potassium 3.9 (3.6-5.2) mmol/L Chloride 105 (100-108) mmol/L Carbon Dioxide 28 (21-32) mmol/L Anion Gap 8.9 (5.0-14.0) mmol/L BUN 20 H (7-18) mg/dL Creatinine 1.3 (0.8-1.3) mg/dL Est Cr Clr Drug Dosing 37.27 mL/min Estimated GFR (MDRD) 52 L (>60) Glucose 130 H (74-106) mg/dL Calcium 8.4 L (8.5-10.1) mg/dL Total Bilirubin (0.2-1.0) mg/dL AST (15-37) U/L ALT (12-78) U/L Alkaline Phosphatase (46-116) U/L Total Protein (6.4-8.2) g/dL Albumin (3.4-5.0) g/dL Globulin (2.3-3.5) g/dL Albumin/Globulin Ratio (1.2-2.2) Urine Color Urine Appearance Urine pH (4.5-8.0) Ur Specific [place] (1.008-1.030) Urine Protein (NEGATIVE) mg/dL Urine Glucose (UA) (NEGATIVE) mg/dL Urine Ketones (NEGATIVE) mg/dL Urine Occult Blood (NEGATIVE) Urine Nitrite (NEGAITVE) Urine Bilirubin (NEGATIVE) Urine Urobilinogen (NORMAL) mg/dL Ur Leukocyte Esterase (NEGATIVE) Urine RBC (0-5) Urine WBC (0-5) Ur Epithelial Cells Amorphous Sediment Urine Bacteria Urine Mucus Med Orders - Current: Current Medications Acetaminophen (Tylenol) 650 mg PO Q4H PRN PRN Reason: Pain (Mild 1-3)/fever Dextrose (Glutose 15) 15 gm PO ASDIRECTED PRN PRN Reason: Hypoglycemia Dextrose/Water (Dextrose 50% In Water) 50 ml IV ASDIRECTED PRN PRN Reason: Hypoglycemia Docusate Sodium (Colace) 100 mg PO BID [facility] Last Admin: 06/14/17 08:01 Dose: 100 mg Enoxaparin Sodium (Lovenox) 40 mg SUBCUT Q24H [facility] Last Admin: 06/13/17 18:17 Dose: 40 mg Famotidine (Pepcid) 20 mg PO BID [facility] Last Admin: 06/14/17 08:01 Dose: Not Given Hydromorphone HCl (Dilaudid) 0.25 mg IVPUSH Q2H PRN PRN Reason: Pain Insulin Aspart (Novolog) 0 unit SUBCUT QIDACANDBED [facility] PRN Reason: Protocol Last Admin: 06/14/17 12:22 Dose: Not Given Magnesium Hydroxide (Milk Of Magnesia) 30 ml PO Q12H PRN PRN Reason: Constipation Multivitamins/Minerals (Prosight) 1 tab PO DAILY [facility] Last Admin: 06/14/17 08:01 Dose: 1 tab Ondansetron HCl (Zofran) 4 mg IV Q4H PRN PRN Reason: Nausea/Vomiting Oxycodone HCl (Oxycodone) 5 mg PO Q4H PRN PRN Reason: Pain (moderate 4-6) Last Admin: 06/14/17 12:15 Dose: 5 mg Polyethylene Glycol (Miralax) 17 gm PO DAILY PRN PRN Reason: Constipation Sodium Chloride (Saline Flush) 10 ml FLUSH ASDIRECTED PRN PRN Reason: Keep Vein Open Discontinued Medications Sodium Chloride (Normal Saline) 1,000 mls @ 100 mls/hr IV ASDIRECTED [facility] Last Admin: 06/14/17 12:16 Dose: 100 mls/hr - Exam Quality Assessment: DVT Prophylaxis General: Alert, Oriented, Cooperative, Mild Distress Lungs: Clear to Auscultation, Normal Respiratory Effort Cardiovascular: Regular Rate, Regular Rhythm, No Murmurs GI/Abdominal Exam: Soft, Non-Tender, No Organomegaly, No Distention Extremities: No Pedal Edema Skin: Warm, Dry, Intact - Problem List Review Problem List Initiated/Reviewed/Updated: Yes - My Orders Last 24 Hours: My Active Orders 06/13/17 15:49 Resuscitation Status Routine 06/13/17 16:35 Patient Status [ADT] Routine Ambulate [RC] QID Blood Glucose Check, Bedside [RC] QIDACANDBED Communication Order [] STAT Diabetes Education [RC] Click to Edit Height and Weight [RC] Intake and Output [RC] QSHIFT Notify Provider Consults [RC] ASDIRECTED Notify Provider Vital Signs [RC] ASDIRECTED Notify Provider [RC] PRN Oxygen Therapy [RC] PRN Peripheral IV Care [RC] Q12H Up With Assistance [RC] ASDIRECTED Up to Chair [RC] QID VTE/DVT Education [RC] Per Unit Routine Vital Signs [RC] Q4H Consult to Physician [CONS] Routine OT Evaluation and Treatment [CONS] Routine PT Evaluation and Treatment [CONS] Routine Acetaminophen [Tylenol] 650 mg PO Q4H PRN Dextrose 50% in Water 50 ml IV ASDIRECTED PRN Dextrose [Glutose 15] 15 gm PO ASDIRECTED PRN HYDROmorphone [Dilaudid] 0.25 mg IVPUSH Q2H PRN Magnesium Hydroxide [Milk of Magnesia] 30 ml PO Q12H PRN Ondansetron [Zofran] 4 mg IV Q4H PRN Polyethylene Glycol 3350 [MiraLAX] 17 gm PO DAILY PRN Sodium Chloride 0.9% [Saline Flush] 10 ml FLUSH ASDIRECTED PRN oxyCODONE 5 mg PO Q4H PRN Peripheral IV Insertion Adult [OM.PC] Routine 06/13/17 17:00 Docusate Sodium [Colace] 100 mg PO BID Insulin Aspart [NovoLOG] See Protocol SUBCUT QIDACANDBED 06/13/17 17:28 Communication Order [RC] ROUTINE 06/13/17 17:30 Enoxaparin [Lovenox] 40 mg SUBCUT Q24H 06/13/17 17:56 SCD [Sequential Compression Device] [OM.PC] Routine 06/14/17 09:00 Beta-Carotene(A) w/C & E/Min [Prosight] 1 tab PO DAILY 06/14/17 14:00 Convert IV to Saline Lock [OM.PC] Routine 06/14/17 16:30 GLUCOSE POC LAB TO COLLECT [POC] QIDACANDBED 06/14/17 21:00 GLUCOSE POC LAB TO COLLECT [POC] QIDACANDBED 06/15/17 05:00 BASIC METABOLIC PANEL,BMP [CHEM] Timed CBC WITH AUTO DIFF [HEME] Timed 06/15/17 07:30 GLUCOSE POC LAB TO COLLECT [POC] QIDACANDBED 06/15/17 11:30 GLUCOSE POC LAB TO COLLECT [POC] QIDACANDBED 06/15/17 16:30 GLUCOSE POC LAB TO COLLECT [POC] QIDACANDBED 06/15/17 21:00 GLUCOSE POC LAB TO COLLECT [POC] QIDACANDBED 06/16/17 07:30 GLUCOSE POC LAB TO COLLECT [POC] QIDACANDBED 06/16/17 11:30 GLUCOSE POC LAB TO COLLECT [POC] QIDACANDBED 06/16/17 16:30 GLUCOSE POC LAB TO COLLECT [POC] QIDACANDBED 06/16/17 21:00 GLUCOSE POC LAB TO COLLECT [POC] QIDACANDBED 06/17/17 07:30 GLUCOSE POC LAB TO COLLECT [POC] QIDACANDBED 06/17/17 11:30 GLUCOSE POC LAB TO COLLECT [POC] QIDACANDBED 06/17/17 16:30 GLUCOSE POC LAB TO COLLECT [POC] QIDACANDBED 06/17/17 21:00 GLUCOSE POC LAB TO COLLECT [POC] QIDACANDBED 06/18/17 07:30 GLUCOSE POC LAB TO COLLECT [POC] QIDACANDBED 06/18/17 11:30 GLUCOSE POC LAB TO COLLECT [POC] QIDACANDBED 06/18/17 16:30 GLUCOSE POC LAB TO COLLECT [POC] QIDACANDBED 06/18/17 21:00 GLUCOSE POC LAB TO COLLECT [POC] QIDACANDBED 06/19/17 07:30 GLUCOSE POC LAB TO COLLECT [POC] QIDACANDBED - Plan Plan:: ASSESSMENT AND PLAN PELVIC FRACTURES-CT scan shows evidence of both superior pubic rami, right inferior pubic rami, sacral insufficiency fractures, and extension of a pubic rami fracture on the right into the acetabulum. -Weightbearing as tolerated -Saline lock IV -Pain medication as needed -Physical therapy and occupational therapy consults in a.m. 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 At the time of this admission I do not reasonably expected evaluation and management of this problem will require more than a 96 hour hospital stay. DISPOSITION-anticipate discharge to long-term for restorative physical therapy and occupational therapy. PRIMARY CARE PROVIDER-Dr. Ng
[2017-06-14] MEDS: Acetaminophen 325 MG Tab PO PRN ×2 (15:51→23:57)
[2017-06-14] MEDS: Enoxaparin 40 MG/0.4 ML Syringe SUBCUT SCH (17:17)
[2017-06-15] MEDS: oxyCODONE 5 MG Tab PO PRN ×2 (03:00→08:11)
[2017-06-15] MEDS: Insulin Aspart 100 Units/ML 3 ML Pen SUBCUT SCH ×4 (08:01→21:13)
[2017-06-15] MEDS: Acetaminophen 325 MG Tab PO PRN (08:12)
[2017-06-15] MEDS: Docusate Sodium 100 MG Cap PO SCH ×2 (09:02→21:13)
[2017-06-15] MEDS: Beta-Carotene (Vitamin A) w/Vitamin C & E plus Minerals Tab PO SCH (09:03)
[2017-06-15] MEDS: Famotidine 20 MG Tab PO SCH ×2 (09:03→21:13)
--- NOTE | 2017-06-15 13:05 | PCM.PN ---
- General Info Date of Service: 06/15/17 Subjective Update: Mr. Santos has been stable over the past 24 hours, although he's not had had a bowel movement during this admission. Denies shortness of breath or chest pain. Has been working with physical therapy and able to ambulate short distances. Functional Status: Reports: Tolerating Diet, Urinating - Review of Systems General: Reports: Weakness. Denies: Fever, Chills Pulmonary: Reports: No Symptoms Cardiovascular: Reports: No Symptoms Gastrointestinal: Reports: No Symptoms - Patient Data Vitals - Most Recent: Last Vital Signs Temp 97.0 F 06/15/17 11:53 Pulse 60 06/15/17 11:53 Resp 18 06/15/17 11:53 BP 131/55 L 06/15/17 11:53 Pulse Ox 91 L 06/15/17 11:53 Weight - Most Recent: 180 lb 0.013 oz I&O - Last 24 Hours: Intake & Output 06/14/17 06/15/17 06/15/17 22:59 06:59 14:59 Intake Total 500 Output Total 500 Balance 500 -500 Lab Results Last 24 Hours: Laboratory Results - last 24 hr 06/15/17 06/15/17 Range/Units 05:41 05:41 WBC 8.7 (4.5-11.0) K/uL RBC 3.79 L (4.30-5.90) M/uL Hgb 12.1 (12.0-15.0) g/dL Hct 36.2 L (40.0-54.0) % MCV 96 (80-98) fL MCH 32 H (27-31) pg MCHC 33 (32-36) % Plt Count 154 (150-400) K/uL Neut % (Auto) 58 (36-66) % Lymph % (Auto) 20 L (24-44) % [place] % (Auto) 15 H (2-6) % Eos % (Auto) 7 H (2-4) % Baso % (Auto) 0 (0-1) % Sodium 138 L (140-148) mmol/L Potassium 4.1 (3.6-5.2) mmol/L Chloride 105 (100-108) mmol/L Carbon Dioxide 28 (21-32) mmol/L Anion Gap 9.1 (5.0-14.0) mmol/L BUN 21 H (7-18) mg/dL Creatinine 1.3 (0.8-1.3) mg/dL Est Cr Clr Drug Dosing 37.41 mL/min Estimated GFR (MDRD) 52 L (>60) Glucose 129 H (74-106) mg/dL Calcium 8.4 L (8.5-10.1) mg/dL Med Orders - Current: Current Medications Acetaminophen (Tylenol) 650 mg PO Q4H PRN PRN Reason: Pain (Mild 1-3)/fever Last Admin: 06/15/17 08:12 Dose: 650 mg Dextrose (Glutose 15) 15 gm PO ASDIRECTED PRN PRN Reason: Hypoglycemia Dextrose/Water (Dextrose 50% In Water) 50 ml IV ASDIRECTED PRN PRN Reason: Hypoglycemia Docusate Sodium (Colace) 100 mg PO BID [facility] Last Admin: 06/15/17 09:02 Dose: 100 mg Enoxaparin Sodium (Lovenox) 40 mg SUBCUT Q24H [facility] Last Admin: 06/14/17 17:17 Dose: 40 mg Famotidine (Pepcid) 20 mg PO BID [facility] Last Admin: 06/15/17 09:03 Dose: 20 mg Hydromorphone HCl (Dilaudid) 0.25 mg IVPUSH Q2H PRN PRN Reason: Pain Insulin Aspart (Novolog) 0 unit SUBCUT QIDACANDBED [facility] PRN Reason: Protocol Last Admin: 06/15/17 12:25 Dose: 1 units Magnesium Hydroxide (Milk Of Magnesia) 30 ml PO Q12H PRN PRN Reason: Constipation Multivitamins/Minerals (Prosight) 1 tab PO DAILY [facility] Last Admin: 06/15/17 09:03 Dose: 1 tab Ondansetron HCl (Zofran) 4 mg IV Q4H PRN PRN Reason: Nausea/Vomiting Oxycodone HCl (Oxycodone) 5 mg PO Q4H PRN PRN Reason: Pain (moderate 4-6) Last Admin: 06/15/17 08:11 Dose: 5 mg Polyethylene Glycol (Miralax) 17 gm PO DAILY PRN PRN Reason: Constipation Sodium Chloride (Saline Flush) 10 ml FLUSH ASDIRECTED PRN PRN Reason: Keep Vein Open Discontinued Medications Sodium Chloride (Normal Saline) 1,000 mls @ 100 mls/hr IV ASDIRECTED [facility] Last Admin: 06/14/17 12:16 Dose: 100 mls/hr - Exam Quality Assessment: DVT Prophylaxis General: Alert, Oriented, Cooperative, Mild Distress Lungs: Clear to Auscultation, Normal Respiratory Effort Cardiovascular: Regular Rate, Regular Rhythm, No Murmurs GI/Abdominal Exam: Soft, Non-Tender, No Organomegaly, No Distention Extremities: Non-Tender, No Pedal Edema Skin: Warm, Dry, Intact - Problem List & Annotations (1) Bilateral pubic rami fractures SNOMED Code(s): 031566030 Code(s): S32.591A - OTH FRACTURE OF RIGHT PUBIS, INIT ENCNTR FOR CLOSED FRACTURE; S32.592A - OTH FRACTURE OF LEFT PUBIS, INIT ENCNTR FOR CLOSED FRACTURE Status: Acute Current Visit: Yes Qualifiers: Encounter type: subsequent encounter (2) Sacral insufficiency fracture SNOMED Code(s): 010768502 Code(s): M84.48XA - PATHOLOGICAL FRACTURE, OTHER SITE, INIT ENCNTR FOR FRACTURE Status: Acute Current Visit: Yes Qualifiers: Encounter type: initial encounter Qualified Code(s): M84.48XA - Pathological fracture, other site, initial encounter for fracture (3) Type 2 diabetes mellitus SNOMED Code(s): 62749922 Code(s): E11.9 - TYPE 2 DIABETES MELLITUS WITHOUT COMPLICATIONS Status: Chronic Current Visit: No - Problem List Review Problem List Initiated/Reviewed/Updated: Yes - My Orders Last 24 Hours: My Active Orders 06/14/17 14:00 Convert IV to Saline Lock [OM.PC] Routine 06/14/17 Dinner Consistent Carbohydrate Diet [DIET] 06/15/17 13:02 Ready for Discharge [RC] PER UNIT ROUTINE 06/15/17 16:30 GLUCOSE POC LAB TO COLLECT [POC] QIDACANDBED 06/15/17 21:00 GLUCOSE POC LAB TO COLLECT [POC] QIDACANDBED 06/16/17 07:30 GLUCOSE POC LAB TO COLLECT [POC] QIDACANDBED 06/16/17 11:30 GLUCOSE POC LAB TO COLLECT [POC] QIDACANDBED 06/16/17 16:30 GLUCOSE POC LAB TO COLLECT [POC] QIDACANDBED 06/16/17 21:00 GLUCOSE POC LAB TO COLLECT [POC] QIDACANDBED 06/17/17 07:30 GLUCOSE POC LAB TO COLLECT [POC] QIDACANDBED 06/17/17 11:30 GLUCOSE POC LAB TO COLLECT [POC] QIDACANDBED 06/17/17 16:30 GLUCOSE POC LAB TO COLLECT [POC] QIDACANDBED 06/17/17 21:00 GLUCOSE POC LAB TO COLLECT [POC] QIDACANDBED 06/18/17 07:30 GLUCOSE POC LAB TO COLLECT [POC] QIDACANDBED 06/18/17 11:30 GLUCOSE POC LAB TO COLLECT [POC] QIDACANDBED 06/18/17 16:30 GLUCOSE POC LAB TO COLLECT [POC] QIDACANDBED 06/18/17 21:00 GLUCOSE POC LAB TO COLLECT [POC] QIDACANDBED 06/19/17 07:30 GLUCOSE POC LAB TO COLLECT [POC] QIDACANDBED - Plan Plan:: ASSESSMENT AND PLAN PELVIC FRACTURES-CT scan shows evidence of both superior pubic rami, right inferior pubic rami, sacral insufficiency fractures, and extension of a pubic rami fracture on the right into the acetabulum. Bed will be available at shelter tomorrow for discharge. -Weightbearing as tolerated -Saline lock IV -Pain medication as needed -Physical therapy and occupational therapy consults in a.m. 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 At the time of this admission I do not reasonably expected evaluation and management of this problem will require more than a 96 hour hospital stay. DISPOSITION-anticipate discharge to shelter tomorrow for restorative physical therapy and occupational therapy. PRIMARY CARE PROVIDER-Dr. Ng
--- NOTE | 2017-06-15 13:10 | PCM.DCSUM1 ---
Discharge Summary - Hospital Course Brief History: Mr. Santos is an 87-year-old gentleman who is admitted through the emergency department with severe pain in his pelvis that was experienced after a fall at home. Evaluation in the emergency department showed evidence of several pelvic fractures. - Discharge Data Discharge Date: 06/15/17 Discharge Disposition: DC/Tfer to [facility] 03 Condition: Fair - Discharge Diagnosis/Problem(s) (1) Bilateral pubic rami fractures SNOMED Code(s): 252916257 ICD Code: S32.591A - OTH FRACTURE OF RIGHT PUBIS, INIT ENCNTR FOR CLOSED FRACTURE; S32.592A - OTH FRACTURE OF LEFT PUBIS, INIT ENCNTR FOR CLOSED FRACTURE Status: Acute Current Visit: Yes Qualifiers: Encounter type: subsequent encounter (2) Sacral insufficiency fracture SNOMED Code(s): 517841304 ICD Code: M84.48XA - PATHOLOGICAL FRACTURE, OTHER SITE, INIT ENCNTR FOR FRACTURE Status: Acute Current Visit: Yes Qualifiers: Encounter type: initial encounter Qualified Code(s): M84.48XA - Pathological fracture, other site, initial encounter for fracture (3) Type 2 diabetes mellitus SNOMED Code(s): 93013007 ICD Code: E11.9 - TYPE 2 DIABETES MELLITUS WITHOUT COMPLICATIONS Status: Chronic Current Visit: No - Patient Summary/Data Consults: Consultations 06/13/17 16:35 Consult to Physician [CONS] Routine Consulting Provider: Vidal Perez Call Completed to Consulting Physician: Yes Reason for Consult: Pubic rami fracture OT Evaluation and Treatment [CONS] Routine Please Evaluate and Treat. OT Reason for Consult: Pubic rami fracture This query below is only for informational purposes and is not editable. PT Evaluation and Treatment [CONS] Routine Please Evaluate and Treat. PT Reason for Consult: Pubic rami fracture This query below is only for informational purposes and is not editable. Hospital Course: Mr. Santos is an 87-year-old gentleman who fell at home and experienced abrupt onset of severe pain in his right groin. He was brought into the emergency department for evaluation. X-ray showed evidence of an inferior pubic rami fracture on the right. CT scan of the pelvis was obtained showing no evidence of hip fracture but did document right inferior pubic rami fracture, right superior rami fracture, left superior rami fracture, a right fracture did appear to extend into the acetabulum. In addition was noted to have sacral insufficiency fractures. He was admitted to the hospital and given medication as needed for pain as well as nausea. IV fluids were given for hydration and serial hemoglobin levels were monitored. CT scan did show evidence of bleeding in the pelvis, initial hemoglobin level did drop but then stabilized through the rest of his hospital stay. He was seen and evaluated by Dr. Frank Perez for orthopedic consult, he recommended weightbearing as tolerated but no further interventions at this time. Activity will be as tolerated and he will resume his usual diet. He will be discharged to residential for restorative physical therapy as well as occupational therapy. - Patient Instructions Diet: Usual Diet as Tolerated Activity: As Tolerated Activity, Other: Weightbearing as tolerated Other/Special Instructions: Patient will be discharged to the residential for restorative physical therapy and occupational therapy. - Discharge Plan Prescriptions/Med Rec: Docusate Sodium [Colace] 100 mg PO BID #60 cap oxyCODONE 5 mg PO Q4H PRN #20 tablet PRN Reason: Pain (Moderate 4-6) Polyethylene Glycol 3350 [MiraLAX] 17 gm PO DAILY #30 packet Home Medications: Home Meds Aspirin 325 mg PO DAILY 02/07/17 [History] Famotidine [Pepcid] 20 mg PO BID 02/07/17 [History] atorvaSTATin [Lipitor] 40 mg PO BEDTIME 02/07/17 [History] Lutein/Minerals/Vit A,C & E [Ocuvite] 1 tab PO DAILY 06/13/17 [History] Acetaminophen [Tylenol] 650 mg PO Q4H PRN tablet 06/15/17 [Rx] Docusate Sodium [Colace] 100 mg PO BID #60 cap 06/15/17 [Rx] Polyethylene Glycol 3350 [MiraLAX] 17 gm PO DAILY #30 packet 06/15/17 [Rx] oxyCODONE 5 mg PO Q4H PRN #20 tablet 06/15/17 [Rx] Referrals: Miguel Ng MD [Primary Care Provider] - - Patient Data Vitals - Most Recent: Last Vital Signs Temp 97.0 F 06/15/17 11:53 Pulse 60 06/15/17 11:53 Resp 18 06/15/17 11:53 BP 131/55 L 06/15/17 11:53 Pulse Ox 91 L 06/15/17 11:53 Weight - Most Recent: 180 lb 0.013 oz I&O - Last 24 hours: Intake & Output 06/14/17 06/15/17 06/15/17 22:59 06:59 14:59 Intake Total 500 Output Total 500 Balance 500 -500 Lab Results - Last 24 hrs: Laboratory Results - last 24 hr 06/15/17 06/15/17 Range/Units 05:41 05:41 WBC 8.7 (4.5-11.0) K/uL RBC 3.79 L (4.30-5.90) M/uL Hgb 12.1 (12.0-15.0) g/dL Hct 36.2 L (40.0-54.0) % MCV 96 (80-98) fL MCH 32 H (27-31) pg MCHC 33 (32-36) % Plt Count 154 (150-400) K/uL Neut % (Auto) 58 (36-66) % Lymph % (Auto) 20 L (24-44) % [place] % (Auto) 15 H (2-6) % Eos % (Auto) 7 H (2-4) % Baso % (Auto) 0 (0-1) % Sodium 138 L (140-148) mmol/L Potassium 4.1 (3.6-5.2) mmol/L Chloride 105 (100-108) mmol/L Carbon Dioxide 28 (21-32) mmol/L Anion Gap 9.1 (5.0-14.0) mmol/L BUN 21 H (7-18) mg/dL Creatinine 1.3 (0.8-1.3) mg/dL Est Cr Clr Drug Dosing 37.41 mL/min Estimated GFR (MDRD) 52 L (>60) Glucose 129 H (74-106) mg/dL Calcium 8.4 L (8.5-10.1) mg/dL Med Orders - Current: Current Medications Acetaminophen (Tylenol) 650 mg PO Q4H PRN PRN Reason: Pain (Mild 1-3)/fever Last Admin: 06/15/17 08:12 Dose: 650 mg Dextrose (Glutose 15) 15 gm PO ASDIRECTED PRN PRN Reason: Hypoglycemia Dextrose/Water (Dextrose 50% In Water) 50 ml IV ASDIRECTED PRN PRN Reason: Hypoglycemia Docusate Sodium (Colace) 100 mg PO BID [facility] Last Admin: 06/15/17 09:02 Dose: 100 mg Enoxaparin Sodium (Lovenox) 40 mg SUBCUT Q24H [facility] Last Admin: 06/14/17 17:17 Dose: 40 mg Famotidine (Pepcid) 20 mg PO BID [facility] Last Admin: 06/15/17 09:03 Dose: 20 mg Hydromorphone HCl (Dilaudid) 0.25 mg IVPUSH Q2H PRN PRN Reason: Pain Insulin Aspart (Novolog) 0 unit SUBCUT QIDACANDBED [facility] PRN Reason: Protocol Last Admin: 06/15/17 12:25 Dose: 1 units Magnesium Hydroxide (Milk Of Magnesia) 30 ml PO Q12H PRN PRN Reason: Constipation Multivitamins/Minerals (Prosight) 1 tab PO DAILY [facility] Last Admin: 06/15/17 09:03 Dose: 1 tab Ondansetron HCl (Zofran) 4 mg IV Q4H PRN PRN Reason: Nausea/Vomiting Oxycodone HCl (Oxycodone) 5 mg PO Q4H PRN PRN Reason: Pain (moderate 4-6) Last Admin: 06/15/17 08:11 Dose: 5 mg Polyethylene Glycol (Miralax) 17 gm PO DAILY PRN PRN Reason: Constipation Sodium Chloride (Saline Flush) 10 ml FLUSH ASDIRECTED PRN PRN Reason: Keep Vein Open Discontinued Medications Sodium Chloride (Normal Saline) 1,000 mls @ 100 mls/hr IV ASDIRECTED [facility] Last Admin: 06/14/17 12:16 Dose: 100 mls/hr *Q Meaningful Use (DIS) - VTE *Q VTE Criteria *Q: - Stroke *Q Stroke Criteria *Q: - AMI *Q AMI Criteria *Q:
[2017-06-15] MEDS: Enoxaparin 40 MG/0.4 ML Syringe SUBCUT SCH (17:24)
[2017-06-16] MEDS: Insulin Aspart 100 Units/ML 3 ML Pen SUBCUT SCH ×2 (08:43→12:28)
[2017-06-16] MEDS: Famotidine 20 MG Tab PO SCH (09:18)
[2017-06-16] MEDS ORDERED: Bisacodyl 10 MG Supp RECTAL ONE (09:30)
[2017-06-16] MEDS: Beta-Carotene (Vitamin A) w/Vitamin C & E plus Minerals Tab PO SCH (10:19)
[2017-06-16] MEDS: Docusate Sodium 100 MG Cap PO SCH (10:19)
[2017-06-16 11:15] VITALS: BP 157/57
[2017-06-16] MEDS: Acetaminophen 325 MG Tab PO PRN (14:46)
== END 2017-06-16 14:55 | DRG 536 ==
LOC: JP.ED 14:07 → JP.MS 15:47
PROVIDERS: ADMIT Hospitalist; ATTEND Hospitalist
DX: S32.591A Other specified fracture of right pubis, initial encounter for closed fracture (principal); M84.48XA Pathological fracture, other site, initial encounter for fracture; W01.0XXA Fall on same level from slipping, tripping and stumbling without subsequent striking against object, initial encounter; Y92.009 Unspecified place in unspecified non-institutional (private) residence as the place of occurrence of the external cause; E11.9 Type 2 diabetes mellitus without complications; Z87.891 Personal history of nicotine dependence; M25.551 Pain in right hip; R10.30 Lower abdominal pain, unspecified; Z86.73 Personal history of transient ischemic attack (TIA), and cerebral infarction without residual deficits; K21.9 Gastro-esophageal reflux disease without esophagitis; I67.9 Cerebrovascular disease, unspecified; Z88.6 Allergy status to analgesic agent
CPT/HCPCS: 36415; 72170; 72170-26; 72192; 80048; 80053; 81001; 82962; 85025; 85027; 97110-GP; 97116-GP; 97162-GP; 97165-GO; 97530-GO; 97530-GP; 99284; 99285-25; A9270-GY; J1650; J7040